=== PATIENT | male | born 1960 | race Two or more races ===

== ENCOUNTER 2017-10-15 00:53 | Inpatient (IN) | payer MEDICAID ==
[~2017-10-15] VITALS: Ht 170.2 cm; Wt 78.9 kg
[2017-10-15 01:55] LABS: CALCIUM 9.3 mg/dL (8.5-10.1); CREATININE SERUM 1.6 mg/dL (0.7-1.3); POTASSIUM SERUM 3.2 mmol/L (3.5-5.1)
[2017-10-15 01:58] LABS: BASOPHIL % 0.4 % (0-2); PLATELET COUNT 215 x10^3mcL (130-400); RED CELL DISTRIBUTION WIDTH 12.4 % (11.5-14.5)
[2017-10-15 02:02] LABS: ALBUMIN 3.8 g/dL (3.4-5.0); BILIRUBIN TOTAL 0.5 mg/dL (0.20-1.00); TOTAL PROTEIN, SERUM 7.7 g/dL (6.4-8.2)
[2017-10-15 04:06] VITALS: BP 149/83
[2017-10-15 04:24] VITALS: BP 149/83
[2017-10-15 05:10] LABS: CHOLESTEROL/HDL RATIO 4.1; MAGNESIUM 2.2 mg/dL (1.8-2.4); PHOSPHOROUS 2.1 mg/dL (2.5-4.9)
[2017-10-15 05:19] LABS: T3 TOTAL 0.89 ng/mL
[2017-10-15 05:21] LABS: FREE T4 1.16 ng/dL (0.76-1.46); FREE THYROXINE INDEX 2.7 ug/dL (1.4-4.5); T4(THYROXINE) 7.8 ug/dL (4.7-13.3)
[2017-10-15 08:14] VITALS: Ht 170.2 cm; Wt 78.9 kg
[2017-10-15 10:45] VITALS: BP 137/91
[2017-10-15 11:06] LABS: microscopic required? YES; urine erythrocyte TRACE (NEGATIVE)
[2017-10-15 11:20] LABS: AMPHETAMINE QUAL UR NONE DETECTED (NEG <=1000)
[2017-10-15 14:00] VITALS: BP 146/86
[2017-10-15 18:16] VITALS: BP 163/93
[2017-10-15 20:31] VITALS: BP 146/86
[2017-10-16] VITALS (13 sets, daily range): BP systolic 126–182; BP diastolic 76–103
[2017-10-16 06:57] LABS: CALCIUM 8.8 mg/dL (8.5-10.1); CARBON DIOXIDE 26.5 mmol/L (21-32); CHLORIDE SERUM 104 mmol/L (98-107); CREATININE SERUM 0.9 mg/dL (0.7-1.3); GFR1 > 60 mL/min; GLUCOSE SERUM 102 mg/dL (74-106); POTASSIUM SERUM 3.7 mmol/L (3.5-5.1); SODIUM SERUM 140 mmol/L (136-145)
[2017-10-16 07:15] LABS: BASOPHIL % 0.4 % (0-2); PLATELET COUNT 189 x10^3mcL (130-400); RED CELL DISTRIBUTION WIDTH 12.6 % (11.5-14.5)
[2017-10-16] MEDS ORDERED: METOPROLOL TART25 M1 PO (16:28)
[2017-10-16] MEDS ORDERED: LIPI10 PO (16:28)
[2017-10-16] MEDS ORDERED: ZES20 PO (16:29)
[2017-10-16] MEDS ORDERED: ECO81 PO (16:32)
== END 2017-10-16 18:37 | disposition short-term general hospital (02) | DRG 191 ==
LOC: ED 00:53 → DU 03:30
PROVIDERS: Emergency Medicine; Family Medicine; Internal Medicine Interventional Cardiology
PROC: B2151ZZ Fluoroscopy of Left Heart using Low Osmolar Contrast (ICD-10-PCS; 2017-10-16)
PROC: B2111ZZ Fluoroscopy of Multiple Coronary Arteries using Low Osmolar Contrast (ICD-10-PCS; 2017-10-16)
PROC: B5191ZZ Fluoroscopy of Inferior Vena Cava using Low Osmolar Contrast (ICD-10-PCS; 2017-10-16)
PROC: 4A023N7 Measurement of Cardiac Sampling and Pressure, Left Heart, Percutaneous Approach (ICD-10-PCS; principal; 2017-10-16 11:00)
DX: I24.9 Acute ischemic heart disease, unspecified (principal); N17.0 Acute kidney failure with tubular necrosis; E83.39 Other disorders of phosphorus metabolism; F17.210 Nicotine dependence, cigarettes, uncomplicated; I16.0 Hypertensive urgency; Z83.3 Family history of diabetes mellitus; Z80.9 Family history of malignant neoplasm, unspecified; Z82.49 Family history of ischemic heart disease and other diseases of the circulatory system; E87.6 Hypokalemia; E78.5 Hyperlipidemia, unspecified; I25.10 Atherosclerotic heart disease of native coronary artery without angina pectoris; I42.2 Other hypertrophic cardiomyopathy
CPT/HCPCS: CLHCL; 83880; 84439; C1760; C1769; C1894; J1644; J2001; J2250; J2270; J2405; J3010; J7030; J7040; Q0092; Q9967

== ENCOUNTER 2017-12-29 12:23 | Emergency (ER) | payer OTHER ==
[~2017-12-29] VITALS: Ht 165.1 cm; Wt 75.7 kg
[~2017-12-29 12:23] MED LIST: ECO81 PO; LIPI10 PO; METOPROLOL TART25 M1 PO; ZES20 PO
[2017-12-29 13:28] LABS: BASOPHIL % 0.7 % (0-2); PLATELET COUNT 195 x10^3mcL (130-400); RED CELL DISTRIBUTION WIDTH 16.3 % (11.5-14.5)
[2017-12-29 13:36] LABS: CALCIUM 8.7 mg/dL (8.5-10.1); CARBON DIOXIDE 27.6 mmol/L (21-32); CHLORIDE SERUM 104 mmol/L (98-107); CREATININE SERUM 0.8 mg/dL (0.7-1.3); GFR1 > 60 mL/min; GLUCOSE SERUM 129 mg/dL (74-106); SODIUM SERUM 140 mmol/L (136-145)
[2017-12-29 15:08] VITALS: BP 155/99
== END 2017-12-29 15:08 | disposition home or self-care (01) ==
LOC: ED 12:23
PROVIDERS: Emergency Medicine
DX: I10 Essential (primary) hypertension (principal)
CPT/HCPCS: 36415; 83880; Q0092